=== PATIENT | male | born 1990 | race Caucasian/White ===

== ENCOUNTER 2016-11-02 10:54 | Emergency (ER) | payer MEDICAID ==
[~2016-11-02] VITALS: Ht 175.3 cm; Wt 61.7 kg
[2016-11-02 11:09] VITALS: BP 127/78
--- NOTE | 2016-11-02 11:13 | NUR ---
Patient ambulated to bed 05.
--- NOTE | 2016-11-02 11:16 | NUR ---
PATIENT PRESENTS TO ED WITH SWOLLEN RIGHT HAND POST DOOR SLAM TO SITE X 3 DAYS AGO . PT DENIES N/V/D; SKIN IS PINK/WARM/DRY; AAOX4 WITH EVEN AND STEADY GAIT; LUNGS CLEAR BL; HR EVEN AND REGULAR; PT DENIES ANY FEVER, CP, SOB, OR COUGH AT THIS TIME; PATIENT STATES PAIN OF 0/10 AT THIS TIME; VSS; PATIENT POSITIONED FOR COMFORT; HOB ELEVATED; BEDRAILS UP X2; BED DOWN. ER MD MADE AWARE OF PT STATUS.
--- NOTE | 2016-11-02 11:18 | NUR ---
HEAD CAGER PRESENT AT BEDSIDE FOR RIGHT HAND XRAY.
[2016-11-02] MEDS ORDERED: IBUPROFEN 600 MG TAB PO ONE (11:25)
[2016-11-02] MEDS ORDERED: ONDANSETRON 4 MG ODT PO ONE (11:25)
[2016-11-02] MEDS ORDERED: oxyCODONE/APAP 5/325 MG 1 TAB TAB PO ONE (11:25)
--- NOTE | 2016-11-02 11:34 | NUR ---
Dr. Preciado evaluating patient at bedside.
--- NOTE | 2016-11-02 11:34 | NUR ---
DR. BRONSON PRESENT AT BEDSIDE.
[2016-11-02 13:22] VITALS: BP 127/78
== END 2016-11-02 13:23 | disposition home or self-care (01) ==
LOC: MED 10:54
DX: S62.304A Unspecified fracture of fourth metacarpal bone, right hand, initial encounter for closed fracture (principal); S62.306A Unspecified fracture of fifth metacarpal bone, right hand, initial encounter for closed fracture; R03.0 Elevated blood-pressure reading, without diagnosis of hypertension; W23.0XXA Caught, crushed, jammed, or pinched between moving objects, initial encounter; Y93.89 Activity, other specified; Y92.89 Other specified places as the place of occurrence of the external cause; Y99.8 Other external cause status
CPT/HCPCS: 29125; 73130; 99284; Q0092; S0119